=== PATIENT | female | born 1995 | race African-American/Black ===

== ENCOUNTER 2018-07-18 19:53 | Emergency (ER) | payer BC | END 2018-07-18 20:14 | disposition home or self-care (01) | LOC: NAV ERS 19:53 | DX: H69.92 Unspecified Eustachian tube disorder, left ear (principal) | CPT/HCPCS: 99282 ==

== ENCOUNTER 2018-08-11 07:33 | Emergency (ER) | payer BC ==
[2018-08-11] MEDS ORDERED: Ibuprofen 800 MG TAB ONE (08:04)
--- NOTE | 2018-08-11 08:41 | RAD ---
THREE VIEWS RIGHT ANKLE: Indication: Right ankle injury. Comparison: None. FINDINGS: No acute fracture or subluxation is present. There is soft tissue swelling surrounding the right ankl e. No visualized hindfoot appears within normal limits. IMPRESSION: No acute osseous abnormality. Soft tissue swelling of the right ankle. POS: DONNA
== END 2018-08-11 08:17 | disposition home or self-care (01) ==
LOC: NAV ERS 07:33
DX: S93.401A Sprain of unspecified ligament of right ankle, initial encounter (principal); X50.1XXA Overexertion from prolonged static or awkward postures, initial encounter